=== PATIENT | female | born 1990 | race African-American/Black ===

== ENCOUNTER 2017-05-19 23:17 | Observation (INO) | payer MEDICAID, OTHER ==
[~2017-05-19] VITALS: Ht 162.6 cm; Wt 65.8 kg
[2017-05-20] MEDS ORDERED: PREN-96 PO (00:28)
== END 2017-05-20 01:27 | disposition home or self-care (01) | DRG 566 ==
LOC: LDRP 23:17
PROVIDERS: ADMIT Obstetrics & Gynecology; ATTEND Obstetrics & Gynecology
DX: O36.8120 Decreased fetal movements, second trimester, not applicable or unspecified (principal); Z3A.24 24 weeks gestation of pregnancy
CPT/HCPCS: 59025; 76815; 81002; G0378

== ENCOUNTER 2017-08-12 01:06 | Observation (INO) | payer OTHER ==
[~2017-08-12 01:06] MED LIST: PREN-96 PO
[2017-08-12] MEDS ORDERED: RANI300T3 PO (02:37)
== END 2017-08-12 02:10 | disposition home or self-care (01) | DRG 566 ==
LOC: LDRP 01:06
PROVIDERS: ADMIT Obstetrics & Gynecology; ATTEND Obstetrics & Gynecology
DX: O26.893 Other specified pregnancy related conditions, third trimester (principal); O62.9 Abnormality of forces of labor, unspecified; R10.30 Lower abdominal pain, unspecified; Z3A.37 37 weeks gestation of pregnancy
CPT/HCPCS: 59025; 81002; G0378